=== PATIENT | male | born 1955 | race Asian ===

== ENCOUNTER 2019-01-10 13:29 | Emergency (ER) | payer MEDICAID ==
[~2019-01-10] VITALS: Ht 162.6 cm; Wt 63.5 kg
[2019-01-10 13:56] VITALS: BP 135/83
[2019-01-10] MEDS ORDERED: CLIN150C2 PO (15:58)
== END 2019-01-10 16:10 | disposition home or self-care (01) ==
LOC: ER 13:29
DX: J02.9 Acute pharyngitis, unspecified (principal); Z79.899 Other long term (current) drug therapy
CPT/HCPCS: 99283

== ENCOUNTER 2019-01-15 08:23 | Emergency (ER) | payer MEDICAID ==
[~2019-01-15] VITALS: Ht 162.6 cm; Wt 62.8 kg
[~2019-01-15 08:23] MED LIST: CLIN150C2 PO
[2019-01-15] MEDS ORDERED: LORA10TA7 PO (08:56)
[2019-01-15 09:08] VITALS: BP 137/72
== END 2019-01-15 09:12 | disposition home or self-care (01) ==
LOC: ER 08:24
DX: J30.2 Other seasonal allergic rhinitis (principal); Z79.2 Long term (current) use of antibiotics; Z79.899 Other long term (current) drug therapy
CPT/HCPCS: 99282

== ENCOUNTER 2019-02-24 14:42 | Emergency (ER) | payer MEDICARE, MEDICAID ==
[~2019-02-24] VITALS: Ht 162.6 cm; Wt 63.6 kg
[~2019-02-24 14:42] MED LIST changes: -CLIN150C2 PO; +LORA10TA7 PO
--- NOTE | 2019-02-24 14:51 | NUR ---
[facility] notified; case # [id number].
[2019-02-24] MEDS ORDERED: LIDOcaine 1% w/epiNEPHrine 1:200,000 30ml vial IM ONE (14:55)
[2019-02-24] MEDS ORDERED: TETanus/Pertussis (Acell)/Diphther VAC/PF (Tdap-Adult) 0.5ml syringe IM ONE (14:55)
[2019-02-24] MEDS ORDERED: CEPH500C5 PO (15:45)
[2019-02-24] MEDS ORDERED: TRAM50TA2 PO (15:45)
[2019-02-24 16:07] VITALS: BP 143/91
== END 2019-02-24 16:10 | disposition home or self-care (01) ==
LOC: ER 14:43
DX: S01.81XA Laceration without foreign body of other part of head, initial encounter (principal); I10 Essential (primary) hypertension; Z79.899 Other long term (current) drug therapy; Y04.0XXA Assault by unarmed brawl or fight, initial encounter; Y93.89 Activity, other specified; Y92.89 Other specified places as the place of occurrence of the external cause; Y99.9 Unspecified external cause status
CPT/HCPCS: 12013; 70450; 70486; 90471; 90715; 99284; J3490

== ENCOUNTER 2021-03-13 10:12 | Emergency (ER) | payer MEDICAID, MEDICARE ==
[~2021-03-13] VITALS: Ht 162.6 cm; Wt 62.8 kg
[2021-03-13 10:56] VITALS: BP 121/78
[2021-03-13] MEDS ORDERED: LEVO500T89 PO (11:45)
[2021-03-13] MEDS ORDERED: TETanus/Pertussis (Acell)/Diphther VAC/PF (Tdap-Adult) 0.5ml syringe IMVAC ONE (11:45)
[2021-03-16] MEDS ORDERED: FERR-106 PO (12:31)
[2021-03-16] MEDS ORDERED: LOSA100T57 PO (12:31)
[2021-03-16] MEDS ORDERED: LEVO500T89 PO (12:37)
[2021-03-16] MEDS ORDERED: SIME80TA15 PO (12:37)
[2021-03-16] MEDS ORDERED: POLY17PO10 PO (12:37)
[2021-03-16] MEDS ORDERED: AMLO10TA13 PO (12:37)
== END 2021-03-13 12:09 | disposition home or self-care (01) ==
LOC: ER 10:12
DX: S91.332A Puncture wound without foreign body, left foot, initial encounter (principal); I10 Essential (primary) hypertension; Z79.2 Long term (current) use of antibiotics; Z79.899 Other long term (current) drug therapy; W22.8XXA Striking against or struck by other objects, initial encounter; Y93.01 Activity, walking, marching and hiking; Y92.007 Garden or yard of unspecified non-institutional (private) residence as the place of occurrence of the external cause; Y99.8 Other external cause status
CPT/HCPCS: 73630; 90471; 90715; 99283

== ENCOUNTER 2022-12-21 12:46 | Emergency (ER) | payer MEDICARE ==
[~2022-12-21] VITALS: Ht 162.6 cm; Wt 63.0 kg
[~2022-12-21 12:46] MED LIST changes: +AMLO10TA13 PO; +ASPI-1071 PO; +ATOR10TA PO; +FERR-106 PO; -LORA10TA7 PO; +LOSA100T57 PO
[2022-12-21 12:56] VITALS: BP 132/72
[2022-12-21] MEDS ORDERED: PHEN51CR24 RC ×2 (14:42→14:51)
== END 2022-12-21 14:59 | disposition home or self-care (01) ==
LOC: ER 12:46
DX: K59.00 Constipation, unspecified (principal); K64.4 Residual hemorrhoidal skin tags; I10 Essential (primary) hypertension
CPT/HCPCS: 99282